=== PATIENT | male | born 1955 | race Two or more races ===

== ENCOUNTER 2017-10-06 09:53 | Day surgery (SDC) | payer OTHER ==
[2017-10-06] MEDS ORDERED: MIDAZOLAM 1 MG/ML 2 ML INJ (12:12)
[2017-10-06] MEDS ORDERED: FENTAnyl 50 MCG/ML VIAL (12:12)
== END 2017-10-06 14:09 | disposition home or self-care (01) ==
LOC: GIL 09:53
DX: Z12.11 Encounter for screening for malignant neoplasm of colon (principal); D12.0 Benign neoplasm of cecum; K44.9 Diaphragmatic hernia without obstruction or gangrene; K21.9 Gastro-esophageal reflux disease without esophagitis; K29.70 Gastritis, unspecified, without bleeding; K64.8 Other hemorrhoids; I10 Essential (primary) hypertension
CPT/HCPCS: 43239; 87081; 88305